=== PATIENT | female | born 1955 | race African-American/Black ===

== ENCOUNTER → 2016-10-22 | Outpatient (CLI) | payer BC ==
[~2016-10-22] MED LIST: ATIVAN PO; DEXILANT30 MG PO; LEVOXYL88 MCG PO; LOMOTIL TABLET1 TAB PO; NAPROSYN500 MG PO; PERCOCET 5-3251 TAB PO; PREDNISONE PO; PREDNISONE5 M1 PO; REGLAN10 MG PO; SYNTHROID88 MCG PO
--- NOTE | ~2016-10-22 | TH ---
Unit #: [id number] #: [id number] Patient: JUNIOR JANSEN [id number] [address] [address] [id number] O MR#: [id number] NAME: JUNIOR JANSEN : 1955 SEX: F STUDY DATE/TIME: 10/22/2016 UNIT: [facility] ROOM: STUDY DESCRIPTION: Lexiscan cardiolite stress Attending Physician: Duke James M.D. Referring Physician: Duke James M.D. Primary Care Physician: Lena Teixeira M.D. CARDIOLOGY REPORT EXAM Cardiolite imaging. PROCEDURE Using technetium 99m labeled Cardiolite, rest and stress SPECT images were obtained. Multiple SPECT images were obtained in various views, including horizontal and vertical long axis and short axis views of the left ventricle. Images were obtained by gated SPECT method. The patient was administered 10.59 mCi of Cardiolite at rest and 29.7 mCi of Cardiolite after Lexiscan infusion was completed. On the stress images there is normal perfusion noted. The rest images showed normal perfusion. Comparing rest and stress images there is no stress induced ischemia noted. The left ventricular ejection fraction is calculated to be 72%. There is no focal wall motion abnormality seen. CONCLUSION 1. No stress induced ischemia noted. 2. The left ventricular ejection fraction is calculated to be 72%. 3. There is no focal wall motion abnormality seen. 4. Normal Lexiscan Cardiolite stress test. 5. Technically limited study due to the patient's body habitus. Clinical correlation s requested. Dictated by... Jose Luis Diaz TD: 10/22/2016 14:26 JOB #: [id number] CC: Jose Luis Patel M.D. Unit #: [id number] #: [id number] Patient: JUNIOR JANSEN CARDIOLOGY REPORT Page 1 of 1 X Kyleigh Montgomery MD <ELECTRONICALLY SIGNED> 11/29/16 1524 CARDIOLOGY REPORT
--- NOTE | ~2016-10-22 | ST ---
Unit #: [id number] #: [id number] Patient: JUNIOR JANSEN [id number] [address] [place], [place] [address] [id number] O MR#: [id number] NAME: JUNIOR JANSEN : 1955 SEX: F STUDY DATE/TIME: 10/22/2016 UNIT: [facility] ROOM: STUDY DESCRIPTION: Attending Physician: Duke James M.D. Referring Physician: Duke James M.D. Primary Care Physician: Lena Teixeira M.D. CARDIOLOGY REPORT EXAM Walking Lexiscan Cardiolite stress test. FINDINGS Baseline EKG shows sinus bradycardia, rate of 57 beats per minute with nonspecific T-wave inversion in V1, V2. PROCEDURE Lexiscan was injected immediately followed by Cardiolite while the patient ambulated on a treadmill for a total of four minutes. She had no complaints of chest pain, palpitations, or dizziness. EKG during Lexiscan showed no ST-T wave abnormalities. No arrhythmias was noted. She was hypertensive with blood pressure of 194/96 mmHg at baseline. For this reason, she was changed to walking Lexiscan Cardiolite stress test. During the test, maximum blood pressure response 186/95 mmHg which was at the end of recovery. Please correlate these results with nuclear images. Dictated by... Hermilo Jackson A.P.R.N. for Jose Luis Samuel/edvin TD: 10/22/2016 13:00 JOB #: [id number] CARDIOLOGY REPORT Page 1 of 1 X Hermilo Jackson APRN CARDIOLOGY REPORT
== END | disposition home or self-care (01) ==
LOC: CNUC 08:35
DX: R94.31 Abnormal electrocardiogram [ECG] [EKG] (principal); I10 Essential (primary) hypertension; R07.9 Chest pain, unspecified
CPT/HCPCS: 78452; 93017; A9500; J2785